=== PATIENT | female | born 1990 | race Hispanic/Latino ===

== ENCOUNTER 2017-02-19 21:24 | Outpatient (CLI) | payer OTHER ==
[~2017-02-19 21:24] MED LIST: PRENATAL GUMMI1 EACH PO
[2017-02-19 21:42] VITALS: BP 118/60
[2017-02-20 02:11] LABS: ADD MIUA? NO; BILIRUBIN NEGATIVE; BLOOD NEGATIVE; COLOR STRAW ((YELLOW)); GLUCOSE (STRIP) NEGATIVE; KETONES NEGATIVE; LEUKOCYTES NEGATIVE; NITRITE NEGATIVE; PROTEIN (STRIP) NEGATIVE; SPECIFIC GRAVITY 1.003 (1.000-1.030); UCUL ADDED? NO; UROBILINOGEN 0.2 MG/DL (0.2-1.0)
[2017-02-20 02:20] LABS: AMPHETAMINE NEGATIVE (500 ng/mL); BARBITURATES NEGATIVE (200 ng/mL); BENZODIAZEPINES NEGATIVE (150 ng/mL); COCAINE NEGATIVE (150 ng/mL); INTERNAL CONTROLS VALID? YES; METHADONE NEGATIVE (200 ng/mL); METHAMPHETAMINE NEGATIVE (500 ng/mL); OPIATES (MORPHINE) NEGATIVE (100 ng/mL); OXYCODONE NEGATIVE (100 ng/mL); PHENCYCLIDINE NEGATIVE (25 ng/mL); PROPOXYPHENE NEGATIVE (300 ng/mL); THC CANNABINOIDS NEGATIVE (50 ng/mL); TRICYCLIC ANTIDEPRESSANTS NEGATIVE (300 ng/mL)
[2017-02-20 02:21] LABS: CANDIDA DNA PROBE POSITIVE; GARDNERELLA DNA PROBE NEGATIVE; INTERNAL CONTROL VALID? YES
== END 2017-02-19 23:45 | disposition home or self-care (01) ==
LOC: LDRP-OP 21:24 → 2WEST 21:25 → LDRP-OP 05-16 17:36
PROVIDERS: Advanced Practice Midwife
DX: O60.03 Preterm labor without delivery, third trimester (principal); Z3A.31 31 weeks gestation of pregnancy; O99.513 Diseases of the respiratory system complicating pregnancy, third trimester; J45.909 Unspecified asthma, uncomplicated
CPT/HCPCS: 59025; 81003; 87086; 87480; 87510; 87660; G0378

== ENCOUNTER 2017-03-20 16:16 | Outpatient (CLI) | payer OTHER ==
[2017-03-20 16:29] VITALS: BP 128/61
== END 2017-03-20 18:30 | disposition home or self-care (01) ==
LOC: LDRP-OP 16:16 → 2WEST 16:17 → LDRP-OP 05-18 23:53
DX: O26.893 Other specified pregnancy related conditions, third trimester (principal); Z3A.35 35 weeks gestation of pregnancy; M54.5 Low back pain; R10.2 Pelvic and perineal pain
CPT/HCPCS: 59025; G0378

== ENCOUNTER 2017-04-13 04:40 | Inpatient (IN) | payer OTHER ==
[~2017-04-13] VITALS: Ht 154.9 cm; Wt 97.0 kg
[2017-04-13 04:58] VITALS: BP 130/60
[2017-04-13] MEDS ORDERED: ZANTAC150 MG PO (05:15)
[2017-04-13 05:46] LABS: BASOPHIL (%) 0.2 % (0-1); EOSINOPHIL (%) 0.7 % (0-5); EOSINOPHIL COUNT 0.1 K/uL (0-0.3); HEMATOCRIT 34.9 % (36.0-46.0); HEMOGLOBIN 11.5 G/DL (11.9-15.5); IMMATURE GRANULOCYTE (%) 0.2 % (0.0-0.7); LYMPHOCYTE COUNT 2.4 K/uL (1.0-2.8); MCH 27.2 PG (29.0-34.0); MCV 82.5 FL (83-99); MONOCYTE (%) 3.9 % (3-12); MONOCYTE COUNT 0.4 K/uL (0-0.8); NEUTROPHIL COUNT 6.3 K/uL (1.8-6.4); PLATELET COUNT 171 K/uL (156-360); RBC DIS.WIDTH-CV 14.7 % (11.8-14.6); RBC DIS.WIDTH-SD 43.2 % (39-53); RED BLOOD COUNT 4.23 M/uL (3.80-5.20); WHITE BLOOD COUNT 9.1 K/uL (4.1-10.2)
[2017-04-13 10:10] VITALS: BP 116/72
[2017-04-13 11:50] VITALS: BP 104/57
[2017-04-13 15:39] VITALS: BP 112/60
[2017-04-13 19:27] VITALS: BP 119/74
[2017-04-13 22:31] VITALS: BP 114/59
[2017-04-14] VITALS (8 sets, daily range): BP systolic 114–129; BP diastolic 57–78
[2017-04-14 07:03] LABS: BASOPHIL (%) 0.1 % (0-1); EOSINOPHIL (%) 0.6 % (0-5); EOSINOPHIL COUNT 0.1 K/uL (0-0.3); HEMATOCRIT 28.1 % (36.0-46.0); IMMATURE GRANULOCYTE (%) 0.5 % (0.0-0.7); LYMPHOCYTE COUNT 2.2 K/uL (1.0-2.8); MCH 26.7 PG (29.0-34.0); MCHC 31.3 G/DL (30.0-36.0); MCV 85.4 FL (83-99); MONOCYTE (%) 4.9 % (3-12); MONOCYTE COUNT 0.4 K/uL (0-0.8); NEUTROPHIL (%) 66.9 % (45-76); NEUTROPHIL COUNT 5.4 K/uL (1.8-6.4); PLATELET COUNT 140 K/uL (156-360); RBC DIS.WIDTH-CV 14.6 % (11.8-14.6); RBC DIS.WIDTH-SD 44.7 % (39-53)
[2017-04-14 07:04] LABS: HEMOGLOBIN 8.8 G/DL (11.9-15.5); RED BLOOD COUNT 3.29 M/uL (3.80-5.20)
[2017-04-14 07:08] LABS: ALBUMIN 2.8 G/DL (3.2-4.8); ALKALINE PHOSPHATASE 156 IU/L (3-129); ALT (GPT) 6 IU/L (3-49); AST (GOT) 17 IU/L (2-34); CHLORIDE 106 MEQ/L (99-109); CREATININE 0.6 MG/DL (0.6-1.3); GFR ESTIMATE (CALCULATED) > 59 mL/min/; GLUCOSE 74 mg/dL (70-99); POTASSIUM 3.7 MEQ/L (3.7-5.4); SODIUM 139 MEQ/L (136-147); TOTAL BILIRUBIN 0.2 MG/DL (0.0-1.0); TOTAL PROTEIN 5.5 G/DL (6.4-8.3); UREA NITROGEN (BUN) 7 mg/dL (9-23)
[2017-04-15 04:11] VITALS: BP 135/60
[2017-04-15] MEDS ORDERED: IBUPROFEN800 MG PO (06:01)
[2017-04-15] MEDS ORDERED: ENDOCET 5-3251 EACH PO (06:01)
== END 2017-04-15 11:45 | disposition home or self-care (01) | DRG 765 ==
LOC: 2WEST 04:40 → 2SOUTH 08:12 → 2WEST 04-15 11:45
PROVIDERS: Obstetrics & Gynecology
PROC: 10D00Z1 Extraction of Products of Conception, Low, Open Approach (ICD-10-PCS; principal; 2017-04-13)
DX: O99.824 Streptococcus B carrier state complicating childbirth (principal); Z68.41 Body mass index [BMI] 40.0-44.9, adult; O98.811 Other maternal infectious and parasitic diseases complicating pregnancy, first trimester; D62 Acute posthemorrhagic anemia; Z37.0 Single live birth; Z3A.39 39 weeks gestation of pregnancy; O99.214 Obesity complicating childbirth; O99.62 Diseases of the digestive system complicating childbirth; J45.909 Unspecified asthma, uncomplicated; O99.52 Diseases of the respiratory system complicating childbirth; E66.01 Morbid (severe) obesity due to excess calories; K21.9 Gastro-esophageal reflux disease without esophagitis; O99.02 Anemia complicating childbirth; O34.211 Maternal care for low transverse scar from previous cesarean delivery; O12.04 Gestational edema, complicating childbirth; Z90.49 Acquired absence of other specified parts of digestive tract; Z79.51 Long term (current) use of inhaled steroids; Z83.3 Family history of diabetes mellitus; Z82.5 Family history of asthma and other chronic lower respiratory diseases; Z82.49 Family history of ischemic heart disease and other diseases of the circulatory system; Z80.0 Family history of malignant neoplasm of digestive organs
CPT/HCPCS: 80053; 85025; 86850; 86900; 86901; 88307; J0690; J1100; J1885; J2274; J2405; J2765; J7120